=== PATIENT | female | born 1980 | race American Indian/Alaskan Native ===

== ENCOUNTER 2021-04-04 17:12 | Emergency (ER) | payer BC, MEDICAID ==
--- NOTE | 2021-04-04 18:21 | Emergency Department Report ---
ED Female HPI - General Chief complaint: Vaginal Bleeding Stated complaint: BLEEDING Time Seen by Provider: 04/04/21 18:04 Source: patient Mode of arrival: Ambulatory Limitations: No Limitations - History of Present Illness Initial comments: patient presents with a brown vaginal discharge and irregular bleeding. Her last menstrual cycle was last week. She does not believe she is . She has not been sexually active. She is concerned because she is had bacterial vaginosis before. She states that these are the same symptoms. There is been no fevers or chills. She has no cough or congestion. There is no dysuria or frequency. She has had no discharge prior to starting her menstrual cycle. Patient has some mild suprapubic cramping. There is no other complaint at this time. She states the pain is really minimal. There was no trauma recently. She does state that she has been engaging in foreplay, but not actual sexual intercourse. - Related Data Home Medications Medication Instructions Recorded Confirmed Last Taken Insulin Syringe U-500 10 units EPIDURAL DAILY 04/04/21 04/04/21 04/04/21 Previous Rx's Medication Instructions Recorded Last Taken Type Doxycycline Monohydrate 100 mg PO BID #20 capsule 04/04/21 Unknown Rx [Doxycycline Monohydrate CAP] Allergies Allergy/AdvReac Type Severity Reaction Status Date / Time No Known Allergies Allergy Verified 04/04/21 17:55 ED Review of Systems ROS: Stated complaint: BLEEDING Other details as noted in HPI Comment: All other systems reviewed and negative Constitutional: denies: fever Eyes: denies: vision change ENT: denies: throat pain Respiratory: denies: cough Cardiovascular: denies: chest pain Endocrine: denies: unexplained weight loss Gastrointestinal: as per HPI Genitourinary: as per HPI Musculoskeletal: denies: back pain Skin: denies: rash Hematological/Lymphatic: denies: easy bruising ED Past Medical Hx - Past Medical History Previous Medical History?: Yes Additional medical history: BV recurrent - Family History Family history: no significant - Social History Smoking Status: Never Smoker Substance Use Type: None - Medications Home Medications: Home Medications Medication Instructions Recorded Confirmed Last Taken Type Doxycycline Monohydrate 100 mg PO BID #20 capsule 04/04/21 Unknown Rx [Doxycycline Monohydrate CAP] Insulin Syringe U-500 10 units EPIDURAL DAILY 04/04/21 04/04/21 04/04/21 History ED Physical Exam - General Limitations: No Limitations, Other General appearance: alert (Pulse ox was noted and normal), in no apparent distress - Head Head exam: Present: atraumatic, normocephalic, normal inspection - Eye Eye exam: Present: normal appearance, EOMI. Absent: scleral icterus - ENT ENT exam: Present: normal exam, normal external ear exam - Neck Neck exam: Present: normal inspection. Absent: meningismus - Respiratory Respiratory exam: Absent: respiratory distress - Cardiovascular Cardiovascular Exam: Absent: JVD - GI/Abdominal GI/Abdominal exam: Present: soft, tenderness ( minimal suprapubic). Absent: guarding, rebound - Extremities Exam Extremities exam: Present: normal capillary refill - Back Exam Back exam: Absent: CVA tenderness (R), CVA tenderness (L) - Neurological Exam Neurological exam: Present: alert, oriented X3, normal gait. Absent: motor sensory deficit - Psychiatric Psychiatric exam: Present: normal affect, normal mood - Skin Skin exam: Present: warm, dry ED Course Vital Signs 04/04/21 04/04/21 17:52 18:06 Temperature 98.2 F 97.4 F L Pulse Rate 86 88 Respiratory 14 16 Rate Blood Pressure 121/82 Blood Pressure 122/96 [Left] O2 Sat by Pulse 99 97 Oximetry - Reevaluation(s) Reevaluation #1: 04/04/21 18:21 Labs were ordered. Old records reviewed. ED Medical Decision Making - Lab Data Result diagrams: 04/04/21 18:31 - Medical Decision Making Labs are noted. Patient presented with possible bacterial vaginosis. She has had this numerous times. She was concerned for other STIs. These have been tested for and treated empirically. She is not . Patient does not have anemia. There is no leukocytosis. She has no abdominal tenderness. I am not concerned for overt PID or TOA. We have discussed safe sex practices and outpatient follow-up. Critical Care Time: No Critical care attestation.: If time is entered above; I have spent that time in minutes in the direct care of this critically ill patient, excluding procedure time. ED Disposition Clinical Impression: Vaginal discharge Disposition: 01 HOME / SELF CARE / HOMELESS Is pt being admited?: No Condition: Stable Instructions: Vaginitis Additional Instructions: Do not put anything into the vagina until your symptoms have resolved. Drink plenty of water. Return for problems. Follow-up with your regular doctor for recheck. Prescriptions: Doxycycline Monohydrate [Doxycycline Monohydrate CAP] 100 mg PO BID #20 capsule Referrals: PRIMARY CARE, [Referring] - 3-5 Days
[2021-04-04 18:52] LABS: Hemoglobin 13.9 gm/dl (10.1-14.3); Mean Corpuscular HGB Conc 34 % (30-34); Mean Corpuscular Volume 86 fl (79-97); Platelet Count 238 K/mm3 (140-440)
[2021-04-04] MEDS ORDERED: metroNIDAZOLE 500 MG TAB PO ONE (19:51)
[2021-04-04 20:17] VITALS: BP 130/87
== END 2021-04-04 20:17 | disposition home or self-care (01) ==
LOC: ED 17:12
DX: N89.8 Other specified noninflammatory disorders of vagina (principal)
CPT/HCPCS: 36415; 84703; 85027; 99283